=== PATIENT | female | born 1990 | race Caucasian/White ===

== ENCOUNTER 2017-12-20 22:10 | Emergency (ER) | payer MEDICAID ==
[~2017-12-20] VITALS: Ht 160 cm; Wt 78.0 kg
[~2017-12-20 22:10] MED LIST: MACR100C PO; PREN27TA PO
[2017-12-20 22:15] VITALS: BP 129/70; PULSE 90; RESP 18; TEMP 98.5; O2SAT 97
[2017-12-20] MEDS: SODIUM CHLOR 0.9% 1000 ML INJ 1,000 ML IV SCH ×2 (23:07→23:34)
--- NOTE | 2017-12-20 23:09 | PD ---
HPI Chief Complaint: GI Complaint Time Seen by Provider: 23:00 Travel History International Travel<30 days: No Contact w/Intl Traveler<30days: No Traveled to known affect area: No History of Present Illness HPI The patient is a 27-year-old female who complains of nausea, vomiting and diarrhea for 5 days. She denies any blood in the vomitus or stool. She denies any fever. She denies any abdominal pain. She denies any history of bowel problems like regional enteritis or ulcerative colitis. She is 7-1/2 months . She denies any vaginal bleeding and she can feel movement of the fetus. She does feel dehydrated. She states she was sent by her network security administrator to come here. [facility] Past Medical History Diminished Hearing: No Genitourinary: Yes (UTERINE AND BLADDER PROLAPSE) Immunizations Current: No Tetanus Vaccination: Unknown Influenza Vaccination: No ?: : 3 Para: 2 Miscarriage: 1 Past Surgical History Tonsillectomy: Yes Social History Alcohol Use: No (DENIES) Tobacco Use: Yes (1/2 PPD) Substance Use: Yes (MARIJUANA "COUPLE TIMES A WEEK"; LAST SMOKED 12/30/15) Allergies-Medications (Allergen,Severity, Reaction): Coded Allergies: No Known Allergies (Verified , 12/31/15) Reported Meds & Prescriptions Reported Meds & Active Scripts Active Review of Systems Except as stated in HPI: all other systems reviewed are Neg Physical Exam Narrative GENERAL: The patient is alert, oriented 3, moderately dehydrated appearing in no apparent distress. Her vital signs are normal. SKIN: Focused skin assessment warm/dry. HEAD: Atraumatic. Normocephalic. EYES: Pupils equal and round. No scleral icterus. No injection or drainage. ENT: No nasal bleeding or discharge. Mucous membranes pink but dry. NECK: Trachea midline. No JVD. CARDIOVASCULAR: Regular rate and rhythm. No murmur appreciated. RESPIRATORY: No accessory muscle use. Clear to auscultation. Breath sounds equal bilaterally. GASTROINTESTINAL: Abdomen soft, non-tender, nondistended. Hepatic and splenic margins not palpable. No guarding or rebound is present. MUSCULOSKELETAL: No obvious deformities. No clubbing. No cyanosis. No edema. NEUROLOGICAL: Awake and alert. No obvious cranial nerve deficits. Motor grossly within normal limits. Normal speech. PSYCHIATRIC: Appropriate mood and affect; insight and judgment normal. Data Data Last Documented VS Vital Signs Date Time Temp Pulse Resp B/P (MAP) Pulse Ox O2 Delivery O2 Flow Rate FiO2 12/20/17 22:15 98.5 90 18 129/70 (89) 97 Orders Orders Sodium Chlor 0.9% 1000 Ml Inj (Ns 1000 M (12/20/17 23:15) Ondansetron Inj (Zofran Inj) (12/20/17 23:15) Complete Blood Count With Diff (12/20/17 23:11) Comprehensive Metabolic Panel (12/20/17 23:11) Lipase (12/20/17 23:11) Urinalysis - C+S If Indicated (12/20/17 23:11) Ondansetron Inj (Zofran Inj) (12/20/17 23:45) Labs Laboratory Tests Test 12/20/17 23:14 12/20/17 23:40 White Blood Count 5.3 TH/MM3 Red Blood Count 4.35 MIL/MM3 Hemoglobin 12.6 GM/DL Hematocrit 37.3 % Mean Corpuscular Volume 85.8 FL Mean Corpuscular Hemoglobin 28.9 PG Mean Corpuscular Hemoglobin Concent 33.7 % Red Cell Distribution Width 12.8 % Platelet Count 151 TH/MM3 Mean Platelet Volume 9.6 FL Neutrophils (%) (Auto) 63.7 % Lymphocytes (%) (Auto) 27.7 % Monocytes (%) (Auto) 7.7 % Eosinophils (%) (Auto) 0.7 % Basophils (%) (Auto) 0.2 % Neutrophils # (Auto) 3.4 TH/MM3 Lymphocytes # (Auto) 1.5 TH/MM3 Monocytes # (Auto) 0.4 TH/MM3 Eosinophils # (Auto) 0.0 TH/MM3 Basophils # (Auto) 0.0 TH/MM3 CBC Comment DIFF FINAL Differential Comment Blood Urea Nitrogen 6 MG/DL Creatinine 0.44 MG/DL Random Glucose 76 MG/DL Total Protein 6.8 GM/DL Albumin 2.7 GM/DL Calcium Level 8.1 MG/DL Alkaline Phosphatase 113 U/L Aspartate Amino Transf (AST/SGOT) 23 U/L Alanine Aminotransferase (ALT/SGPT) 20 U/L Total Bilirubin 0.3 MG/DL Sodium Level 135 MEQ/L Potassium Level 3.1 MEQ/L Chloride Level 103 MEQ/L Carbon Dioxide Level 25.0 MEQ/L Anion Gap 7 MEQ/L Estimat Glomerular Filtration Rate 173 ML/MIN Lipase 73 U/L Urine Color YELLOW Urine Turbidity CLEAR Urine pH 6.0 Urine Specific [place] 1.010 Urine Protein NEG mg/dL Urine Glucose (UA) NEG mg/dL Urine Ketones 40 mg/dL Urine Occult Blood NEG Urine Nitrite NEG Urine Bilirubin NEG Urine Urobilinogen 1.0 MG/DL Urine Leukocyte Esterase NEG Urine RBC 0-2 /hpf Urine WBC 0-2 /hpf Urine Squamous Epithelial Cells > 8 /hpf Urine Bacteria OCC /hpf Microscopic Urinalysis Comment CULT NOT INDICATED MDM Medical Decision Making Medical Screen Exam Complete: Yes Emergency Medical Condition: Yes Medical Record Reviewed: Yes Interpretation(s) The complete metabolic profile shows an albumin of 2.7, calcium 8.1 with sodium 135 and potassium 3.1 but is otherwise normal. The lipase is normal. The CBC is normal. The urinalysis shows 40 ketones with occasional bacteria but is otherwise normal and cultures not indicated. Differential Diagnosis Hyperemesis gravidarum, gastroenteritis, dehydration, electrolyte disorder Narrative Course The patient appears to have gastroenteritis she came in moderately dehydrated as evidenced by the ketones in her urine. She required 8 mg of Zofran IV to control the nausea. She will be given 8 mg Zofran 3 times daily. She will need to follow-up with her network security administrator as soon as possible. Med/Other Pt SpecificInfo: Prescription(s) given Scripts Ondansetron (Zofran) 8 Mg Tab 8 MG PO TID for Nausea/Vomiting, #21 TAB 0 Refills Prov: Gume Krishnan MD 12/21/17 Disposition: DISCHARGE HOME Condition: Stable Gume Krishnan MD Dec 20, 2017 23:09
[2017-12-20] MEDS ORDERED: ONDANSETRON HCL 4 MG/2 ML VIAL IV ONE ×2 (23:15→23:45)
[2017-12-20 23:30] LABS: AUTOMATED NEUTROPHIL # 3.4 TH/MM3 (1.8-7.7); BASOPHIL % 0.2 % (0.0-2.0); EOSINOPHIL % 0.7 % (0.0-4.0); HEMATOCRIT 37.3 % (35.0-46.0); HEMOGLOBIN 12.6 GM/DL (11.6-15.3); LYMPH % 27.7 % (9.0-44.0); LYMPHOCYTE # 1.5 TH/MM3 (1.0-4.8); MEAN CELL VOLUME 85.8 FL (80.0-100.0); MEAN CORPUSCULAR HEMOGLOBIN 28.9 PG (27.0-34.0); MEAN CORPUSCULAR HGB CONC 33.7 % (32.0-36.0); MEAN PLATELET VOLUME 9.6 FL (7.0-11.0); MONO % 7.7 % (0.0-8.0); MONOCYTE # 0.4 TH/MM3 (0-0.9); NEUT % 63.7 % (16.0-70.0); PLATELET COUNT 151 TH/MM3 (150-450); RED BLOOD COUNT 4.35 MIL/MM3 (4.00-5.30); RED CELL DISTRIBUTION WIDTH 12.8 % (11.6-17.2); WHITE BLOOD COUNT 5.3 TH/MM3 (4.0-11.0)
[2017-12-20 23:38] LABS: CHLORIDE 103 MEQ/L (98-107); SODIUM (NA) 135 MEQ/L (136-145)
[2017-12-20 23:42] LABS: ALBUMIN 2.7 GM/DL (3.4-5.0); BLOOD UREA NITROGEN 6 MG/DL (7-18); CALCIUM 8.1 MG/DL (8.5-10.1); GLUCOSE,RANDOM 76 MG/DL (74-106)
[2017-12-20 23:45] LABS: ALT (GPT) 20 U/L (10-53); AST (GOT) 23 U/L (15-37); CREATININE 0.44 MG/DL (0.50-1.00); GLOMERULAR FILTRATION RATE 173 ML/MIN (>89)
[2017-12-20 23:47] LABS: TOTAL BILIRUBIN ADULT 0.3 MG/DL (0.2-1.0); TOTAL PROTEIN 6.8 GM/DL (6.4-8.2)
[2017-12-20 23:48] LABS: ALKALINE PHOSPHATASE 113 U/L (45-117)
[2017-12-20 23:52] LABS: BILIRUBIN, URINE NEG (NEG); BLOOD, URINE NEG (NEG); GLUCOSE,URINE NEG (NEG); KETONE, URINE 40 mg/dL (NEG); NITRITE,URINE NEG (NEG); URINE COLOR YELLOW (YELLW/STRAW); URINE LEUKOCYTE ESTERASE NEG (NEG)
[2017-12-20 23:56] LABS: BACTERIA, URINE OCC /hpf; RBC, URINE 0-2 /hpf (0-3); SQUAMOUS EPITHELIAL CELL URINE > 8 /hpf (0-5); WBC, URINE 0-2 /hpf (0-5)
[2017-12-21] MEDS ORDERED: ZOFR8TAB PO (00:20)
[2017-12-21 00:35] VITALS: BP 128/73; TEMP 97.2
== END 2017-12-21 00:35 | disposition home or self-care (01) ==
LOC: PHED 22:10
DX: E86.0 Dehydration (principal); K52.9 Noninfective gastroenteritis and colitis, unspecified; F17.200 Nicotine dependence, unspecified, uncomplicated; F12.90 Cannabis use, unspecified, uncomplicated
CPT/HCPCS: 80053; 81001; 83690; 85025; 96361; 96374; 96376; 99284; J2405; J7030